=== PATIENT | male | born 2000 | race Caucasian/White ===

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

== ENCOUNTER 2024-09-01 16:36 | Inpatient (IN) ==
[2024-09-01 20:10] LABS: Basophils # (auto) 0.04 K/uL (0.00-0.20); Basophils % (auto) 0.5 %; Eosinophils # (auto) 0.06 K/uL (0.00-0.50); Eosinophils % (auto) 0.8 %; Hematocrit (blood only) 42.2 % (42.0-52.0); Hemoglobin 13.8 g/dl (14.0-18.0); Immature Granulocytes # (auto) 0.02 K/uL (0.01-0.20); Immature Granulocytes % (auto) 0.3 %; Lymphocytes # (auto) 2.17 K/uL (1.20-3.40); Lymphocytes % (auto) 27.4 %; Mean Corpuscular Hemoglobin 25.4 pg (25.0-34.0); Mean Corpuscular Hgb Conc 32.7 g/dL (32.0-36.0); Mean Corpuscular Volume 77.7 fL (80.0-100.0); Mean Platelet Volume 9.1 fL (9.4-12.4); Monocytes # (auto) 0.86 K/uL (0.11-0.59); Monocytes % (auto) 10.8 %; Neutrophils # (auto) 4.78 K/uL (1.40-6.50); Neutrophils % (auto) 60.2 %; Platelet Count 352 K/uL (130-400); RDW Coefficient of Variation 12.5 % (11.5-14.5); RDW Standard Deviation 35.2 fL (36.4-46.3); Red Blood Count 5.43 M/uL (4.70-6.10); White Blood Count 7.93 K/ul (4.8-10.8)
[2024-09-01 20:21] LABS: Albumin Globulin Ratio 1.4 (0.9-2); Albumin Level 4.4 gm/dl (3.4-5.0); BUN Creatinine Ratio 11.9 (10-20); Bilirubin,Total 0.4 mg/dl (0.2-1.0); Calcium 9.5 mg/dl (8.6-10.3); Creatinine Clr Calc Pharmacy 197.5 ml/min; Globulin 3.2 gm/dl (2.5-4.0); Potassium 3.7 mmol/L (3.5-5.1); Total Protein 7.6 gm/dl (6.0-8.3)
[2024-09-01 20:25] LABS: Appearance Urine Clear (Clear); Bacteria Urine Automated None Seen (None Seen); Bilirubin Urine Negative (Negative); Blood Urine Negative (Negative); Cast Urine Automated 0-2 /lpf (0-2); Color Urine Yellow; Epithelial Cell Urine Auto 0-2 /hpf (0-2); Glucose Urine UA Trace (Negative); Ketones Urine Trace (Negative); Leukocyte Esterase Urine Negative (Negative); Mucus Urine Present (None Prsent); Nitrite Urine Negative (Negative); Protein Urine 1+ (Negative); Specific Gravity Urine 1.025 (1.000-1.030); Urobilinogen Urine Negative (Negative); WBC Urine Automated 0-5 /hpf (0-5); pH Urine 5.5 (4.5-7.5)
[2024-09-01 20:35] LABS: Thyroid Stimulating Hormone 1.679 uIu/ml (0.300-4.500)
[2024-09-01 20:39] LABS: Acetaminophen 36 ug/ml (10-30); Partial Thromboplastin Time 26 Seconds (21-31); Prothrombin Time 11.3 Seconds (9.0-12.0); Salicylate < 3.0 mg/dl (3.0-30)
[2024-09-01 20:58] LABS: Amphetamines+Metham, Urine Neg (Neg); Barbiturates, Urine Neg (Neg); Benzodiazepine, Urine Neg (Neg); Cocaine, Urine Neg (Neg); Fentanyl, Urine Neg (Neg); MDMA (Ecstacy), Urine Neg (Neg); Marijuana, Urine Pos (Neg); Methadone, Urine Neg (Neg); Opiate, Urine Pos (Neg); Phencyclidine, Urine Neg (Neg)
--- NOTE | 2024-09-01 22:04 | Emergency Department Note ---
History of Present Illness General Chief complaint: Overdose (Intentional) Stated complaint: OVERDOSE Time Seen by Provider: 09/01/24 16:58 History of Present Illness Provider complaint: Overdose mental health evaluation 24-year-old male with history of anxiety and depression presents emergency department for a suicide attempt via overdose. Patient reports that at approximately 1530 he took hydrocodone 5/325 6 to 10 tablets as well as approximately 4000 mg of Tylenol PM and attempt to kill himself. Home Medications Medication Instructions Recorded Confirmed Type blood sugar diagnostic (Blood #50 ea 03/02/22 08/01/24 Rx Glucose Test strips) blood-glucose meter (Blood Glucose #1 ea 03/02/22 08/01/24 Rx Monitoring kit) lancets 21 gauge (Comfort EZ #100 ea 03/02/22 08/01/24 Rx Lancets) rizatriptan 10 mg tablet See Rx Instructions PO .COMPLEX 04/06/23 09/01/24 History PRN migraine headache albuterol sulfate 90 mcg/actuation 1 inh inhalation QID PRN shortness 09/29/23 09/01/24 Rx aerosol inhaler of breath or wheezing #6.7 grams lisinopril 40 mg tablet 40 mg PO QAM #90 tabs 09/30/23 09/01/24 Rx metformin 1,000 mg tablet 1,000 mg PO BID #180 tabs 09/30/23 09/01/24 Rx pantoprazole 40 mg tablet,delayed 40 mg PO BID #180 tabs 10/12/23 09/01/24 Rx release metoclopramide HCl 10 mg tablet 10 mg PO Q6H PRN nausea and 12/30/23 09/01/24 Rx (Reglan) vomiting #14 tabs digital therapeutic,TL device #1 ea 05/11/24 08/01/24 Rx duloxetine 30 mg capsule,delayed 30 mg PO BID 05/11/24 09/01/24 History release (Cymbalta) emtricitabine 200 mg-tenofovir 1 tab PO DAILY HIV prevention 05/11/24 09/01/24 History alafenamide fumarate 25 mg tablet (Descovy) hydrochlorothiazide 25 mg tablet 25 mg PO QAM 05/11/24 09/01/24 History hydrocodone 5 mg-acetaminophen 325 1 tab PO Q4H PRN pain 05/11/24 09/01/24 History mg tablet olanzapine 5 mg tablet 5 mg PO QPM PRN Migraine Headache 05/11/24 09/01/24 History galcanezumab-gnlm 120 mg/mL 120 mg subcut MONTHLY #3 mL 05/16/24 09/01/24 Rx subcutaneous pen injector (Emgality Pen) divalproex 250 mg tablet,delayed 250 mg PO QAM 05/26/24 09/01/24 History release rimegepant 75 mg disintegrating 75 mg PO DIRECTED PRN migraine 07/08/24 09/01/24 Rx tablet (Nurtec ODT) headache 90 days #24 tabs Medical Marijuana 1 dose PO UD PRN Anxiety 07/14/24 09/01/24 History dulaglutide 0.75 mg/0.5 mL 4.5 mg subcut WK 08/01/24 09/01/24 History subcutaneous pen injector (Trulicity) sucralfate 1 gram tablet 1 g PO Q6H 90 days #360 tabs 08/01/24 09/01/24 Rx dicyclomine 20 mg tablet 20 mg PO QID PRN abdominal pain 08/02/24 09/01/24 Rx #20 tabs albuterol sulfate 90 mcg/actuation 1 inh inhalation TID 09/01/24 09/01/24 History aerosol inhaler divalproex 250 mg tablet,extended 250 mg PO DAILY 09/01/24 09/01/24 History release 24 hr (Depakote ER) promethazine 25 mg rectal 25 mg SD USEASDIRECTD PRN Nausea 09/01/24 09/01/24 History suppository And Vomiting promethazine 25 mg rectal mg SD PRN Nausea 09/01/24 History suppository rosuvastatin 20 mg tablet (Crestor) 20 mg PO DAILY 09/01/24 09/01/24 History trazodone 100 mg tablet 100 mg PO DIRECTED 09/01/24 09/01/24 History Allergies Allergy/AdvReac Type Severity Reaction Status Date / Time morphine Allergy Severe given IV Verified 08/01/24 08:32 pt gets hives,if given orally throat swells shut oxycodone Allergy Severe THROAT Verified 08/01/24 08:32 SWELLS Sulfa (Sulfonamide Allergy Severe Swelling Verified 08/01/24 08:32 Antibiotics) of Lip/Tongue/Throat Penicillins Allergy Intermediate red rash Verified 08/01/24 08:32 venom-honey bee Allergy Intermediate swelling Verified 08/01/24 08:32 latex Allergy Mild HANDS Verified 08/01/24 08:32 ITCH/REDNESS sumatriptan AdvReac Severe Dizziness Verified 08/01/24 08:32 lactose AdvReac Intermediate Gastrointestinal Verified 08/01/24 08:32 Upset vinyl Allergy Intermediate cuticles Uncoded 08/01/24 08:32 get red,infected and fill with puss Past Med/Surg History Problem List (Updated 09/01/24 @ 22:24 by Frederick Chairez MD) Depression with suicidal ideation (Acute) GERD with esophagitis DDD (degenerative disc disease), lumbar Diabetes mellitus type 2 in obese Chronic lumbar pain Migraine with aura (Acute) Obesity Anxiety and depression Dislocation of left patella Esophagitis Acid reflux Hypertension Insomnia Asthma LAST USED INHALER>OVER MONTH AGO Medical History Anxiety and depression GERD without esophagitis Diabetes Neuropathy feet Asthma well controlled, rare use of rescue inhaler Sleep apnea CPAP nightly DDD (degenerative disc disease), lumbar chronic lumbar pain Lactose intolerance Post traumatic stress disorder Bipolar disorder Migraine Hypertension History of COVID-10 MARCH 2020 (LOSS OF TASTE/SMELL/FEBRILE/NAUSEA AND VOMITTING) ADHD IBS (irritable bowel syndrome) Surgical History History of esophagogastroduodenoscopy (EGD) Family history of reaction to anesthesia GRANDMOTHER-NAUSEA [place] teeth removed Family History Grandfather (Maternal) Diabetes Grandmother (Maternal) Diabetes Hypertension Liver disease Grandfather (Paternal) Diabetes Mother Migraine Other Cancer Social History Smoking Status: Former smoker Tobacco Type: E-cigarettes / Vaping Second Hand Exposure: No; Do You Dip or Chew Tobacco: No; Hx Alcohol Use: No Hx Substance Use: Yes (medical marijuana card- advised) Last Used Substance Other:: 8 mos ago Preferred Language: Maori Communication Ability: Effective Visual Impairment: Limited Hearing Ability: Normal Development Mgr Required: No Beliefs That Will Affect Care: None marital status: Single Current Living Situation: Family current occupational status: employed 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 [place] How many Children do You have: 0 Feels Safe at Home: Yes Childhood Exposure to Second-Hand Smoke: No Diet: lactose free and regular during the past year weight has: increased > 10 lbs Dental Care, Regularly: No Physical Activity Frequency: 3-4 Times per Week Seatbelt Use: always Sunscreen Use: Yes Gender Identity: Nonbinary Assistive Devices: CPAP and Glasses Physical Exam Vital Signs Vital Signs - 24 hr 09/01/24 16:47 09/01/24 17:30 09/01/24 17:33 Temperature 36.8 C Temperature Source Oral Pulse Rate 99 H 91 H Pulse Rate [Apical] Pulse Rate from SpO2 Sensor 91 H Pulse Rhythm Regular Respiratory Rate 20 19 Respiratory Effort / Characteristics Non-Labored Spontaneous Respiratory Depth Normal Respiratory Pattern Regular Blood Pressure 182/117 H 157/96 H Blood Pressure [Right Arm] Blood Pressure Mean 138 118 Blood Pressure Mean [Right Arm] Blood Pressure Position [Right Arm] Pulse Oximetry 97 96 Oxygen Delivery Method Room Air Sepsis Recent Fever Within 48 Hours No Sepsis New/Unexplained Change in Mental Status No Sepsis Action Taken by Nursing No Action Required 09/01/24 17:34 09/01/24 17:54 09/01/24 18:00 Temperature Temperature Source Pulse Rate 91 H 82 Pulse Rate [Apical] Pulse Rate from SpO2 Sensor 84 Pulse Rhythm Respiratory Rate 17 Respiratory Effort / Characteristics Respiratory Depth Respiratory Pattern Blood Pressure 157/87 H Blood Pressure [Right Arm] Blood Pressure Mean 111 Blood Pressure Mean [Right Arm] Blood Pressure Position [Right Arm] Pulse Oximetry 96 Oxygen Delivery Method Sepsis Recent Fever Within 48 Hours Sepsis New/Unexplained Change in Mental Status Sepsis Action Taken by Nursing 09/01/24 18:00 09/01/24 18:21 09/01/24 18:30 Temperature Temperature Source Pulse Rate Pulse Rate [Apical] Pulse Rate from SpO2 Sensor 90 Pulse Rhythm Respiratory Rate 18 Respiratory Effort / Characteristics Respiratory Depth Respiratory Pattern Blood Pressure 157/87 H 147/83 H Blood Pressure [Right Arm] Blood Pressure Mean 111 99 Blood Pressure Mean [Right Arm] Blood Pressure Position [Right Arm] Pulse Oximetry 97 Oxygen Delivery Method Sepsis Recent Fever Within 48 Hours Sepsis New/Unexplained Change in Mental Status Sepsis Action Taken by Nursing 09/01/24 18:48 09/01/24 19:00 09/01/24 19:00 Temperature Temperature Source Pulse Rate 81 Pulse Rate [Apical] Pulse Rate from SpO2 Sensor 83 Pulse Rhythm Respiratory Rate 18 Respiratory Effort / Characteristics Respiratory Depth Respiratory Pattern Blood Pressure 147/90 H 147/90 H Blood Pressure [Right Arm] Blood Pressure Mean 113 113 Blood Pressure Mean [Right Arm] Blood Pressure Position [Right Arm] Pulse Oximetry 97 Oxygen Delivery Method Sepsis Recent Fever Within 48 Hours Sepsis New/Unexplained Change in Mental Status Sepsis Action Taken by Nursing 09/01/24 19:00 09/01/24 19:00 09/01/24 19:30 Temperature Temperature Source Pulse Rate 86 87 Pulse Rate [Apical] Pulse Rate from SpO2 Sensor 86 88 Pulse Rhythm Respiratory Rate 18 19 Respiratory Effort / Characteristics Respiratory Depth Respiratory Pattern Blood Pressure 147/90 H Blood Pressure [Right Arm] Blood Pressure Mean 113 Blood Pressure Mean [Right Arm] Blood Pressure Position [Right Arm] Pulse Oximetry 98 97 Oxygen Delivery Method Sepsis Recent Fever Within 48 Hours Sepsis New/Unexplained Change in Mental Status Sepsis Action Taken by Nursing 09/01/24 19:30 09/01/24 19:30 09/01/24 19:30 Temperature Temperature Source Pulse Rate Pulse Rate [Apical] Pulse Rate from SpO2 Sensor Pulse Rhythm Respiratory Rate Respiratory Effort / Characteristics Respiratory Depth Respiratory Pattern Blood Pressure 154/90 H 154/90 H 154/90 H Blood Pressure [Right Arm] Blood Pressure Mean 112 112 112 Blood Pressure Mean [Right Arm] Blood Pressure Position [Right Arm] Pulse Oximetry Oxygen Delivery Method Sepsis Recent Fever Within 48 Hours Sepsis New/Unexplained Change in Mental Status Sepsis Action Taken by Nursing 09/01/24 21:19 Temperature Temperature Source Pulse Rate Pulse Rate [Apical] 80 Pulse Rate from SpO2 Sensor Pulse Rhythm Respiratory Rate 18 Respiratory Effort / Characteristics Non-Labored Spontaneous Respiratory Depth Normal Respiratory Pattern Regular Blood Pressure Blood Pressure [Right Arm] 169/99 H Blood Pressure Mean Blood Pressure Mean [Right Arm] 122 Blood Pressure Position [Right Arm] Lying Pulse Oximetry 97 Oxygen Delivery Method Room Air Sepsis Recent Fever Within 48 Hours Sepsis New/Unexplained Change in Mental Status Sepsis Action Taken by Nursing Physical Exam GENERAL: oriented to person, place, and time. appears well-developed and well- nourished. HENT: Exam performed. - Head: Normocephalic and atraumatic. EYES: Conjunctivae and EOM are normal. Right eye exhibits no discharge. Left eye exhibits no discharge. No scleral icterus. NECK: Normal range of motion. Neck supple. No JVD present. CV: Normal rate, regular rhythm, normal heart sounds and intact distal pulses. There is no peripheral edema. Palpable radial pulses bue. PULM/CHEST: Effort normal and breath sounds normal. No respiratory distress. No stridor. no wheezes. no rales. ABD: The abdomen is soft. There is no tenderness. NEURO: Motor and sensation grossly intact. SKIN: Skin is warm and dry. He is not diaphoretic. PSYCH: Suicidal ideation. Course Course 1657: The patient was evaluated in room A7. A complete history and physical exam was performed Cardiac monitoring: An order was placed for continuous cardiac monitoring. The monitor shows a rate of 90 with sinus rhythm interpreted by me 1752: Spoke with Felicitas from poison control and we both agreed to wait until labs until the 4-hour jonathan postingestion at 1930. 2051: Vital signs stable. Labs and imaging are unremarkable. Tylenol level 36, less than 150 at the 4-hour postingestion time. Discussed with Silviano from poison control who stated the patient can be cleared from toxicological standpoint. Will attempt to place the patient into inpatient mental health treatment. Patient placed in observation at this time. 2222: Case signed out to Dr. Reinoso awaiting psychiatric placement. Medical Decision Making Laboratory Data Attestation: I reviewed the patient's lab results. 09/01/24 19:41 09/01/24 19:41 Lab Results 09/01/24 Range/Units 19:41 WBC 7.93 (4.8-10.8) K/ul RBC 5.43 (4.70-6.10) M/uL Hgb 13.8 L (14.0-18.0) g/dl Hct 42.2 (42.0-52.0) % MCV 77.7 L (80.0-100.0) fL MCH 25.4 (25.0-34.0) pg MCHC 32.7 (32.0-36.0) g/dL RDW Std Deviation 35.2 L (36.4-46.3) fL RDW Coeff of Milagros 12.5 (11.5-14.5) % Plt Count 352 (130-400) K/uL MPV 9.1 L (9.4-12.4) fL Immature Gran % (Auto) 0.3 % Neut % (Auto) 60.2 % Lymph % (Auto) 27.4 % [place] % (Auto) 10.8 % Eos % (Auto) 0.8 % Baso % (Auto) 0.5 % Neut # (Auto) 4.78 (1.40-6.50) K/uL Lymph # (Auto) 2.17 (1.20-3.40) K/uL [place] # (Auto) 0.86 H (0.11-0.59) K/uL Eos # (Auto) 0.06 (0.00-0.50) K/uL Baso # (Auto) 0.04 (0.00-0.20) K/uL Immature Gran # (Auto) 0.02 (0.01-0.20) K/uL PT 11.3 (9.0-12.0) Seconds INR 1.0 (0.9-1.1) APTT 26 (21-31) Seconds PTT Ratio 1.0 Sodium 139 (136-145) mmol/L Potassium 3.7 (3.5-5.1) mmol/L Chloride 105 (98-107) mmol/L Carbon Dioxide 25 (21-32) mmol/L Anion Gap 9 (3-11) BUN 10 (6-23) mg/dl Creatinine 0.84 (0.6-1.4) mg/dl Est Cr Clr Drug Dosing 197.5 ml/min eGFR 125.66 BUN/Creatinine Ratio 11.9 (10-20) Glucose 107 H (70-99(Fasting)) mg/dl Calcium 9.5 (8.6-10.3) mg/dl Total Bilirubin 0.4 (0.2-1.0) mg/dl AST 18 (13-39) U/L ALT 28 (7-52) U/L Alkaline Phosphatase 43 (34-104) U/L Total Protein 7.6 (6.0-8.3) gm/dl Albumin 4.4 (3.4-5.0) gm/dl Globulin 3.2 (2.5-4.0) gm/dl Albumin/Globulin Ratio 1.4 (0.9-2) TSH 1.679 (0.300-4.500) uIu/ml Urine Color Yellow Urine Appearance Clear (Clear) Urine pH 5.5 (4.5-7.5) Ur Specific [place] 1.025 (1.000-1.030) Urine Protein 1+ H (Negative) Urine Glucose (UA) Trace H (Negative) Urine Ketones Trace H (Negative) Urine Blood Negative (Negative) Urine Nitrite Negative (Negative) Urine Bilirubin Negative (Negative) Urine Urobilinogen Negative (Negative) Ur Leukocyte Esterase Negative (Negative) Urine WBC (Auto) 0-5 (0-5) /hpf Urine RBC (Auto) 6-10 H (0-2) /hpf U Hyaline Cast (Auto) 0-2 (0-2) /lpf U Epithel Cells (Auto) 0-2 (0-2) /hpf Urine Bacteria (Auto) None Seen (None Seen) Urine Mucus Present A (None Prsent) Salicylates < 3.0 L (3.0-30) mg/dl Urine Opiates Screen Pos H (Neg) Ur Methadone, Qual Neg (Neg) Urine Fentanyl Screen Neg (Neg) Acetaminophen 36 H (10-30) ug/ml Urine Barbiturates Neg (Neg) Ur Phencyclidine (PCP) Neg (Neg) U Amphetamin/Meth Scrn Neg (Neg) MDMA (Ecstasy) Screen Neg (Neg) U Benzodiazepines Scrn Neg (Neg) Ur Cocaine Metabolite Neg (Neg) U Marijuana (THC) Screen Pos H (Neg) Ethyl Alcohol mg/dL < 10.0 (<10.0) mg/dl SARS-CoV-2, RNA, NAAT NEGATIVE (NEGATIVE) ECG Data Attestation: I personally reviewed and interpreted this ECG as follows: Additional Comments: EKG #1 at 164: Sinus tachycardia with a rate of 108. SD QRS and QTc intervals within normal limits. No ST elevation or ST depression. EKG #2 at 2049: Sinus rhythm with a rate of 86. SD QRS and QT intervals within normal limits. No ST elevation or ST depression. MDM Narrative 1658: The patient was evaluated in room A7. A complete history and physical exam was performed Cardiac monitoring: An order was placed for continuous cardiac monitoring. The monitor shows a rate of 90 with sinus rhythm interpreted by me 1753: Spoke with Felicitas from poison control and we both agreed to wait until labs until the 4-hour jonathan postingestion at 1930. 2051: Vital signs stable. Labs and imaging are unremarkable. Tylenol level 36, less than 150 at the 4-hour postingestion time. Discussed with Silviano from poison control who stated the patient can be cleared from toxicological standpoint. Will attempt to place the patient into inpatient mental health treatment. Patient placed in observation at this time. 2223: Case signed out to Dr. Reinoso awaiting psychiatric placement. Observation note Indication: Psych eval/placement Patient, with anxiety, depression was first seen at 1658 hrs and the observation time began at 2052 hrs and was necessary in order to have psych evaluation completed and have the patient placed for inpatient psychiatric treatment. Impression & Plan Depression with suicidal ideation Discharge Plan Visit Data Chief Complaint: Overdose (Intentional) Stated Complaint: OVERDOSE ED Provider: Frederick Chairez Discharge Problem: Depression with suicidal ideation Patient Disposition: Still a Patient Forms Stand Alone Forms: [facility], Suicide Prevention Resources Prescriptions Prescriptions: No Action albuterol sulfate 90 mcg/actuation HFA aerosol inhaler 1 inh inhalation QID PRN (Reason: shortness of breath or wheezing) Qty: 6.7 0RF lisinopril 40 mg tablet 40 mg PO QAM Qty: 90 3RF metformin 1,000 mg tablet 1,000 mg PO BID Qty: 180 3RF pantoprazole 40 mg tablet,delayed release (DR/EC) 40 mg PO BID Qty: 180 3RF Rx Instructions: Take 1 tablet by mouth twice daily metoclopramide HCl [Reglan] 10 mg tablet 10 mg PO Q6H PRN (Reason: nausea and vomiting) Qty: 14 2RF Emgality Pen 120 mg/mL pen injector 120 mg subcut MONTHLY Qty: 3 3RF Rx Instructions: 15 th of every month Nurtec ODT 75 mg tablet,disintegrating 75 mg PO DIRECTED PRN (Reason: migraine headache) 90 Days Qty: 24 3RF Rx Instructions: Take 1 tablet daily PRN for migraine. Max 1 tab/24 hrs (DME) blood-glucose meter [Blood Glucose Monitoring] Kit See Rx Instructions .Route Qty: 1 0RF Rx Instructions: As directed (DME) Blood Glucose Test Strip See Rx Instructions .Route Qty: 50 7RF Rx Instructions: As directed test BID (DME) lancets [Comfort EZ Lancets] 21 gauge misc See Rx Instructions .Route Qty: 100 3RF Rx Instructions: As directed rizatriptan 10 mg tablet See Rx Instructions PO .COMPLEX PRN (Reason: migraine headache) Rx Instructions: take 1 tab at onset of headache; if no relief may repeat 1 tab after at least 2 hrs; max = 3 tabs/24 hr orally PRN; duloxetine [Cymbalta] 30 mg capsule,delayed release(DR/EC) 30 mg PO BID hydrocodone-acetaminophen 5-325 mg tablet 1 tab PO Q4H PRN (Reason: pain) olanzapine 5 mg tablet 5 mg PO QPM PRN (Reason: Migraine Headache) hydrochlorothiazide 25 mg tablet 25 mg PO QAM [place] 200-25 mg tablet 1 tab PO DAILY (DME) digital therapeutic,TL device Misc See Rx Instructions miscellaneous .MEDSUPPLY Qty: 1 0RF Rx Instructions: As directed sucralfate 1 gram tablet 1 g PO Q6H 90 Days Qty: 360 3RF Dose Instruction: TAKE 1 TABLET BY MOUTH 4 TIMES DAILY FOR 14 DAYS TAKE BEFORE MEALS AND BEDTIME CRUSH AND MIX WITH 15ML WATER Trulicity 0.75 mg/0.5 mL pen injector 4.5 mg subcut WK Patient Comments: saturdays Rx Instructions: wednesday divalproex 250 mg tablet,delayed release (DR/EC) 250 mg PO QAM promethazine 25 mg suppository 25 mg SD USEASDIRECTD PRN (Reason: Nausea And Vomiting) trazodone 100 mg tablet 100 mg PO DIRECTED albuterol sulfate 90 mcg/actuation Hfa Aerosol Inhaler 1 inh INHALATION TID divalproex [Depakote ER] 250 mg Tablet Extended Release 24 Hr 250 mg PO DAILY rosuvastatin [Crestor] 20 mg Tablet 20 mg PO DAILY promethazine 25 mg suppository SD PRN (Reason: Nausea) Medical Marijuana 1 dose PO UD PRN (Reason: Anxiety) Patient Comments: last used 8 months ago dicyclomine 20 mg tablet 20 mg PO QID PRN (Reason: abdominal pain) Qty: 20 0RF Referrals Referrals: Jonathan Sue MD [Primary Care Provider] -
--- NOTE | 2024-09-01 23:56 | Emergency Department Note ---
ED Visit Note Patient signed out to me at change of shift from Dr. Chairez. Patient medically cleared at time of signout, please see his documentation for additional details. Patient here with suicidal ideation. Patient accepted to [facility] for additional inpatient mental health treatment. .
[2024-09-02] MEDS ORDERED: MAGNESIUM HYDROXIDE SUSP 30 ML UDC PO PRN (00:59)
[2024-09-02] MEDS ORDERED: BISMUTH SUBSALICYLATE 262 MG CHEW PO PRN (00:59)
[2024-09-02] MEDS ORDERED: hydrOXYzine HCl 25 MG TAB PO PRN ×2 (00:59)
[2024-09-02] MEDS ORDERED: ALUMINUM/MAGNESIUM SUSP 30 ML UDC PO PRN (00:59)
[2024-09-02] MEDS ORDERED: SODIUM CHLORIDE 0.65% NA SOLN 45 ML (OCEAN) PRN (00:59)
[2024-09-02] MEDS: hydroCHLOROthiazide 25 MG TAB PO STA (01:21)
[2024-09-02] MEDS ORDERED: ALBUTEROL HFA 8 GM INHALER INH PRN (01:38)
[2024-09-02] MEDS ORDERED: ONDANSETRON 4 MG OD TAB PO PRN (02:01)
--- OUTSIDE RECORDS SUMMARY | 2024-09-02 02:27 | External Medical Summary | Summary of Care ---
Author Name Unknown Organization [facility] Address [address] [place] [address] Phone [phone] Care Team Providers Care Electrical Tester Battery Name Role Phone Octavio Sue MD Primary Care Provider Reason for Visit * Reason Onset Date Comments Appointment 08/09/2024 acute Encounter Details Date Type Department Care Team (Late st Contact Info) Description 08/09/2024 Telephone [facility] [address] [place] [address] Octavio Sue MD [address] [place], [place] [id number] Appointment (acute) Allergies Active Allergy Reactions Criticality Noted Date Comments Bee Venom 09/01/2017 Food (See Comments) 09/01/2017 Raisins Latex 12/30/2023 Red hands,itchy hives on hands. Oxycodone Anaphylaxis High 10/27/2023 Penicillins Hives,Itching 10/27/2023 Sulfa Antibiotics Hives High 01/04/2024 Sumatriptan Other (Please comment) 10/27/2023 Dizziness and light headedness documented as of this encounter (statuses as of 08/09/2024) Medications Metoclopramide HCl 10 MG Oral Tablet (Reglan) Take 1 Tablet by mouth every 6 hours as needed for Nausea or Other (vomitting). 10/07/19 24 Active Pantoprazole Sodium 40 MG Oral Tablet Delayed Release (Protonix) Take 1 Tablet by mouth in the morning and 1 Tablet in the evening. 09/30/19 24 Active Rizatriptan Benzoate 10 MG Oral Tablet (Maxalt) Take 1 Tablet by mouth as needed for Migraine. Active metFORMIN HCl 1000 MG Oral Tablet (Glucophage) Take 1 Tablet by mouth 2 times a day with morning and evening meals. 180 Tablet 3 12/20/19 24 Active Triamcinolone Acetonide 0.1 % External Cream (Aristocort) Apply 4-5 grams to affected area 2 times a day up to 2 weeks for itching 80 g 1 03/27/20 24 Active Lisinopril 40 MG Oral TabletIndications: HTN, goal below 130/80 Take 1 Tablet by mouth in the morning. 03/31/20 24 Active hydroCHLOROthiazid e 25 MG Oral Tablet (Hydrodiuril)Indic ations:HTN, goal below 130/80 Take 1 Tablet by mouth in the morning. 90 Tablet 3 03/31/20 24 Active Descovy 200-25 MG Oral Tablet (Emtricitabine-Ten ofovir AF 200-25 mg per tab)Indications:On pre-exposure prophylaxis for HIV Take 1 Tablet by mouth in the morning. 30 Tablet 3 04/19/2024 3:05 PM EDT 04/19/20 24 Active Divalproex Sodium 250 MG Oral Tablet Delayed Release (Depakote DR) Take 1 tablet by mouth daily 90 Tablet 2 05/11/2024 12:37 PM EDT 05/11/20 24 Active Emgality 120 MG/ML Subcutaneous Solution Auto-injector (Galcanezumab-gnlm ) Inject 120 mg under the skin once a month 1 mL 11 05/11/20 24 Active OLANZapine 5 MG Oral Tablet (zyPREXA) Take 1 Tablet by mouth at bedtime. 05/11/20 24 Active Albuterol Sulfate HFA 108 (90 Base) MCG/ACT Inhalation Aerosol Solution Inhale 1 Puff by mouth in the morning and 1 Puff at noon and 1 Puff in the evening and 1 Puff before bedtime. For shortness of breath and or whizzing. 18 g 5 05/31/2024 10:34 AM EDT 05/30/20 24 Active Dexcom G7 SensorIndications: Type 2 diabetes mellitus with hemoglobin A1c goal of less than 7.0% (HCC) Use as directed every 10 days. 9 Each 4 06/01/2024 11:37 AM EDT 05/31/20 24 Active GNP Easy Touch Glucose Meter DeviceIndications: Type 2 diabetes mellitus with hemoglobin A1c goal of less than 7.0% (HCC) Use to check blood sugars daily E 11.9 1 Each 4 05/31/20 24 Active GNP Easy Touch Glucose Test In Vitro Strip (Glucose Blood)Indications: Type 2 diabetes mellitus with hemoglobin A1c goal of less than 7.0% (HCC) Use to check blood sugars daily E 11.9 100 Strip 4 05/31/20 24 Active GNP Sterile Lancets 28GIndications:Typ e 2 diabetes mellitus with hemoglobin A1c goal of less than 7.0% (HCC) Use to check blood sugars daily. E 11.0 100 Each 4 05/31/20 24 Active DULoxetine HCl 30 MG Oral Capsule Delayed Release Particles (Cymbalta)Indicati ons:Lumbar radicular pain,DDD (degenerative disc disease), lumbar,Neuropathic pain Take 1 Capsule by mouth in the morning and 1 Capsule before bedtime. 60 Capsule 3 06/21/2024 2:00 PM EDT 06/19/20 24 Active Nurtec 75 MG Oral Tablet Disintegrating (Rimegepant Sulfate) Take one tablet by mouth daily as needed for migraine. Max one tablet a day 24 Tablet 3 07/13/2024 1:10 PM EST 07/08/20 24 Active traZODone HCl 100 MG Oral Tablet (Desyrel) Take 1 Tablet by mouth at bedtime as needed for Sleep. 30 Tablet 07/12/20 24 Active Trulicity 4.5 MG/0.5ML Subcutaneous Solution Auto-injector (Dulaglutide)Indic ations:Type 2 diabetes mellitus with hemoglobin A1c goal of less than 7.0% ([facility]) Inject 4.5 mg under the skin once a week. Dose increase 6 mL 07/21/2024 1:32 PM EST 07/18/20 24 Active Rosuvastatin Calcium 20 MG Oral Tablet (Crestor)Indicatio ns:Type 2 diabetes mellitus with hemoglobin A1c goal of less than 7.0% (HCC) Take 1 Tablet by mouth every day 90 Tablet 4 07/21/2024 9:58 AM EST 07/19/20 Active Additional Information Patient not taking.Reason: on hold per MTM as of 07/31/24, Reported on 08/04/2024 Albuterol Sulfate HFA 108 (90 Base) MCG/ACT Inhalation Aerosol Solution Inhale by mouth. 20.1 g 07/24/20 Active Sucralfate 1 GM Oral Tablet (Carafate) take 1 tablet by mouth every 6 hours 360 Tablet 3 08/01/20 Active Dicyclomine HCl 20 MG Oral Tablet (Bentyl) 08/02/20 Active documented as of this encounter (statuses as of 08/09/2024) Active Problems Problem Noted Date Diagnosed Date Mild intermittent asthma without complication Type 2 diabetes mellitus wit h hemoglobin A1c goal of less than 7.0% 05/08/2024 HTN, goal below 130/80 05/08/2024 Class 3 severe obesity due t o excess calories with serious comorbidity and body mass index (BMI) of 40.0 to 44.9 in adult 11/17/2023 Attention deficit hyperactivity disorder (ADHD) 05/10/2018 Migraines 10/01/2014 Family history of diabetes mellitus 2013 documented as of this encounter (statuses as of 08/09/2024) Resolved Problems Problem Noted Date Diagnosed Date Resolved Date Wheezing 09/06/2013 04/10/2019 Hypercholesterolemia 03/21/2013 019 Obesity, pediatric 2013 4 documented as of this encounter (statuses as of 08/09/2024) Immunizations Name Administration Dates Next Due COVID-19 mRNA, LNP-s, No Pre serve, 2-Dose Series (Pfizer) 11/21/2020,10/31/2020 DTaP Dipth/Tet/Acell Pertussis (Infanrix), Peds 02/25/2006,06/22/2002,2001,07/25,2001 HIB PRP-T, 4 Dose, PF, IM (H iberix, ActHib) 07/31/2004,03/23/2002,2001,05/19 HPV Vaccine, 4-Valent 05/23/2014,02/28/2014 HPV Vaccine, 9-Valent 04/06/2018,05/23/2014,070 04/2014 Haemophilius B (HIB), unspecified 2003,03/23/2002,2001,05/19 Hepatitis A Vaccine 03/21/2013,05/05/2012 Hepatitis A, Ped/Adol., 18 y ear and below, 2-Dose 03/21/2013,05/05/2012 Hepatitis B, 0-19 yrs 03/23/2002,2001,04/24 IPV - Polio Virus Vaccine (Inact) 2005,06/22/2002,2001,05/19 MMR - Measles/Mumps/Rubella Vaccine 02/25/2006,0 03/23/2002 Meningococcal Conjugate Vacc ine (Menactra/Menveo) 04/06/2018,05/05/2012 Meningococcal MCV4P Conjugat e Vaccine (Menactra) 04/06/2018,05/05/2012 PPD 12/07/2023,,08/02/2017,07/21 Pneumococcal Conjugate Vacc, 13 Valent (Prevnar) 03/23/2002,2001,2001,05/19 Pneumococcal Conjugate Vacci ne, 20-valent ([id number]) 12/22/2023 Seasonal Influenza Vac., MDV , IM, 0.5 mL (Fluzone) 05/05/2012,05/25/2011 Seasonal Influenza Virus Vac cine, Unspecified Formulation 05/07/2023,06/27/2018,06/17/2016,05/05,05/25/2011,07/09/2008 Seasonal Influenza, PF, 6 M & above, IM , (FluLaval or Fluzone) 06/27/2018 Seasonal Influenza, Quadriva lent, No Preserve, IM 06/17/2016,06/12/2015 Seasonal Influenza, Recombin ant, RIV4, PF, (Flublock) 05/10/2020 Seasonal Influenza, Trivalen t, (IIV3), PF, (Fluzone) 06/26/2024 TDAP (age 10 and older)(Boostrix) 04/06/2018 TDAP, Age 7 and older, IM (Adacel) 05/05/2012 Varicella Vaccine (Chicken Pox) 07/31/2009,03/23 documented as of this encounter Social History Tobacco Use Types Packs/Day Years Used Date Smoking Tobacco: Never Passive Smoke Exposure: Current Smokeless Tobacco: Never Alcohol Use Standard Drinks/Week Comments No 0 (1 standard drink = 0.6 oz pur e alcohol) PHQ-2 Answer Date Recorded PHQ Adult Total Score 0 05/17/2024 Hunger Vital Sign Answer Date Recorded Within the past 12 months, y ou worried that your food would run out before you got the money to buy more. Patient declined Within the past 12 months, t he food you bought just didn't last and you didn't have money to get more. Patient declined 11/2023 Childcare Answer Date Recorded Do you feel overwhelmed with taking care of a child, family member or friend? No 10/25/2023 Does your family need help f inding childcare? (Household - for ages 0-17 years) Not on file 10/25/2023 Clothing Answer Date Recorded Have you been unable to get clothing when it was really needed? No 10/25/2023 Is your family able to get c lothes or diapers when needed? (Household - for ages 0-17 years) Not on file 10/25/2023 Personal Safety Answer Date Recorded Do you feel unsafe or have concerns for your saf ety? No 10/25/2023 Do you have concerns for you r family's safety? (Household - for ages 0-17 years) Not on file 10/25/2023 Utilities Answer Date Recorded Do you have trouble paying y our heating, water, or electric bill? No 10/25/2023 Is your family able to pay t he heat, water, or electric bill? (Household - for ages 0-17 years) Not on file 10/25/2023 Does your family have access to good internet? (Household - for ages 0-17 years) Not on file 10/25/2023 Employment Status Answer Date Recorded Are you unemployed or without regular income? No 10/25/2023 Does the household have a re gular source of income? (Household - for ages 0-17 years) Not on file 10/25/2023 Social Connections Answer Date Recorded How often do you feel lonely or isolated from th ose around you? Rarely 10/25/2023 Financial Resource Strain Answer Date R ecorded Do you have any trouble payi ng for your medications, or do you think you might in the future? No 10/25/2023 Does your family have troubl e paying for medicine? (Household - for ages 0-17 years) Not on file 10/25/2023 Transportation Needs Answer Date Record ed READ ONLY Do you have troubl e getting a ride to medical visits or work? Never True 10/25/2023 Does your family have a hard time getting a ride to doctors visits? (Household - for ages 0-17 years) Not on file 10/25/2023 Has lack of transportation k ept you from medical appointments, meetings, work, or from getting things needed for daily living? Check all that apply. (Adult - for ages 18 years and over) Not on file 10/25/2023 Do you (or your family) have trouble finding or paying for a ride (transportation)? (Household - for ages 0-17 years) Not on file 10/25/2023 Housing Stability Answer Date Recorded Do you currently live in a s helter or have no steady place to sleep at night? No 10/25/2023 READ ONLY Do you think you a re at risk of becoming homeless? No 10/25/2023 Does your family worry about paying for your home or becoming homeless? (Household - for ages 0-17 years) Not on file 0 10/25/2023 Are you homeless or worried that you might be in the future? (Adult - for ages 18 years and over) Not on file Are you (or your family) fawad eless or worried that you might be in the future? (Household - for ages 0-17 years) Not on file Food Insecurity Answer Date Recorded Do you need food for this week? No 10/25/2023 Are you able to get enough f ood for your family? (Household - for ages 0-17 years) Not on file 10/25/2023 Does your family need food t his week? (Household - for ages 0-17 years) Not on file 10/25/2023 Do you always have enough fo od for your family? (Household - for ages 0-17 years) Not on file 10/25/2023 Sex and Gender Information Value Date Recorded Sex Assigned at Male 10/25/2023 6:15 PM EST Legal Sex Male 6:54 AM EST Gender Identity Male 10/25/2023 6:15 PM EST Sexual Orientation Marcial 10/25/2023 6: 15 PM EST documented as of this encounter Miscellaneous Notes * Telephone Encounter - Roxy Erickson OSA - 08/09/2024 2:10 PM EST Done. 08/09/2024 * Telephone Encounter - Arben Garcia OSA - 08/09/2024 12:25 PM EST No Appointments Available Patient declined appointments?: Yes What Visit Type is needed? Acute If Acute Visit Type is needed, were surrounding clinics offered to patient (Yes/No)? Yes Was patient offered appointments with other available providers (Yes/No)? Yes See Call Details? (Yes or No): Yes documented in this encounter Plan of Treatment Upcoming Encounters Date Type Department Care Team (Late st Contact Info) Description 08/09/2024 3:40 PM EST Telemedicine [facility] [address] [facility] [place] [phone] DecemberJamal MD [address] [facility] [place] [phone] 08/21/2024 10:30 AM EST Office Visit Interventional Pain Center, [facility] [address] [address] Meg Muñoz PA-C [address] [place] [address] 09/01/2024 2:30 PM EST Telemedicine Psychiatry Akash Leonard [address] [phone] Lucien Mane, DO [address] [place] [phone] 09/11/2024 9:30 AM EST Therapy Psychology [facility] [address] [facility] [place] [phone] Elvie Chan, [facility] [address] [facility] [place] [address] 10/02/2024 8:00 AM EST Office [facility] [phone] Octavio Sue MD [address] [place] [address] 10/11/2024 9:00 AM EST Office Visit Infectious Disease [facility] [address] [place] [address] Clotilde Reid MD [address] [place], [place] [id number] 11/14/2024 3:00 PM EDT Office Visit Sleep Disorders Ctr [facility] [address] [facility] [place] [phone] Courtney Fischer, DO [address] [facility] [place] [address] 12/19/2024 9:00 AM EDT Office Visit Pharmacy, Doroteo Stroud [address] [facility] [place] [phone] [address] [address] Health Maintenance Due Date Last Done Comments COVID-19 Vaccine (2023-2 5 season) 2024 06/03/2022, 11/21/2020, 10/31/2020, Additional history exists Albumin/Creatinine Ratio 10/26/2024 10/27/2023 HbA1c 11/15/2024 05/18/2024, 03/0 01/2024, 01/02/2016, Additional history exists Diabetic Eye Exam 03/01/2025 03/01/2024 Depression Screening 05/17/2025 05/17/2024, 03/10/2024, 12/22/2023 Diabetic Foot Exam 05/29/2025 05/29/2024 GFR 07/12/2025 07/12/2024, 0802/2024, 04/11/2024, Additional history exists DTap/Tdap Vaccines (9 - Td o r Tdap) 01/24/2032 01/23/2022, 04/06/2018, 05/05/2012, Additional history exists Hepatitis B Vaccine Completed 03/23/2002, 2001, 2001 HPV (Gardasil) Vaccine Completed 8, 05/23/2014, 05/23/2014, Additional history exists MENINGOCOCCAL (MENACTRA/MENVEO) Completed 04/06/2018, 04/06/2018, 05/05/2012, Additional history exists Pneumococcal Vaccine: Pediat rics (0 to 5 Years) and At-Risk Patients (6 to 64 Years) Completed 12/22/2023, 01/23/2022, 03/23/2002, Additional history exists Influenza Vaccine (FLU shot) Completed 11/2023, 06/26/2024, 06/29/2023, Additional history exists documented as of this encounter Medical Devices Not on filedocumented as of this encounter Care Teams Electrical Tester Battery Relationship Specialty Start Date End Date Octavio Sue MD [address] [place] [address] PCP - General Family Medicine 10/26/23 documented as of this encounter
--- OUTSIDE RECORDS SUMMARY | 2024-09-02 02:27 | External Medical Summary | Summary of Care ---
Author Name Unknown Organization [facility] Address [address] [place] [address] Phone [phone] Care Team Providers Care Estate Administrator Name Role Phone Octavio Sue MD Primary Care Provider [phone] Reason for Visit * Reason Comments Back Pain * Precert (Within 30 days (routine)) - Authorized Specialty Diagnoses / Procedures Referred By Crissy her Referred To Contact Pain Medicine Diagnoses Myalgia, other site Procedures [place] INJECTION SINGLE/BEATER WORKER HELPER TRIGGER POINT 3 OR MORE MUSCLES Meg Muñoz PA-C [address] [place] [address] Phone: tel: fax: Interventional Pain Center, [facility] [address] [place] [address] Phone: tel: fax: Referral ID Status Reason Start Date Expiration Date V isits Requested Visits Authorized [id number] Authorized Precert 07/26/2024 09/24/[id number] Encounter Details Date Type Department Care Team (Late st Contact Info) Description 08/21/2024 10:30 AM EST Office Visit Interventional Pain Center, [facility] [address] [place] [address] Meg Muñoz PA-C [address] [place] [address] Myofascial pain syndrome of lumbar spine* Allergies Active Allergy Reactions Criticality Noted Date Comments Bee Venom 09/01/2017 Food (See Comments) 09/01/2017 Raisins Latex 12/30/2023 Red hands,itchy hives on hands. Oxycodone Anaphylaxis High 10/27/2023 Penicillins Hives,Itching 10/27/2023 Sulfa Antibiotics Hives High 01/04/2024 Sumatriptan Other (Please comment) 10/27/2023 Dizziness and light headedness documented as of this encounter (statuses as of 08/21/2024) Medications Metoclopramide HCl 10 MG Oral Tablet [...] Tablet 2 05/11/2024 12:37 PM EDT 05/11/20 Active Emgality 120 MG/ML Subcutaneous Solution Auto-injector (Galcanezumab-gnlm ) Inject 120 mg under the skin once a month 1 mL 11 05/11/20 Active OLANZapine 5 MG Oral Tablet (zyPREXA) Take 1 Tablet by mouth at bedtime. 05/11/20 Active Albuterol Sulfate HFA 108 (90 Base) MCG/ACT Inhalation Aerosol Solution Inhale 1 Puff by mouth in the morning and 1 Puff at noon and 1 Puff in the evening and 1 Puff before bedtime. For shortness of breath and or whizzing. 18 g 5 05/31/2024 10:34 AM EDT 05/30/20 Active Dexcom G7 SensorIndications: Type 2 diabetes mellitus with hemoglobin A1c goal of less than 7.0% ([facility]) Use as directed every 10 days. 9 Each 4 08/17/2024 8:16 AM EST 05/31/20 Active GNP Easy Touch Glucose Meter DeviceIndications: Type 2 diabetes mellitus with hemoglobin A1c goal of less than 7.0% ([facility]) Use to check blood sugars daily E 11.9 1 Each 4 05/31/20 Active GNP Easy Touch Glucose Test In Vitro Strip (Glucose Blood)Indications: Type 2 diabetes mellitus with hemoglobin A1c goal of less than 7.0% ([facility]) Use to check blood sugars daily E 11.9 100 Strip 4 05/31/20 Active GNP Sterile Lancets 28GIndications:Typ e 2 diabetes mellitus with hemoglobin A1c goal of less than 7.0% ([facility]) Use to check blood sugars daily. E 11.0 100 Each 4 05/31/20 24 Active DULoxetine HCl 30 MG Oral Capsule Delayed Release Particles (Cymbalta)Indicati ons:Lumbar radicular pain,DDD (degenerative disc disease), lumbar,Neuropathic pain Take 1 Capsule by mouth in the morning and 1 Capsule before bedtime. 60 Capsule 3 06/21/2024 2:00 PM EDT 06/19/20 Active Nurtec 75 MG Oral Tablet Disintegrating (Rimegepant Sulfate) Take one tablet by mouth daily as needed for migraine. Max one tablet a day 24 Tablet 3 07/13/2024 1:10 PM EST 07/08/20 Active traZODone HCl 100 MG Oral Tablet (Desyrel) Take 1 Tablet by mouth at bedtime as needed for Sleep. 30 Tablet 07/12/20 Active Trulicity 4.5 MG/0.5ML Subcutaneous Solution Auto-injector (Dulaglutide)Indic ations:Type 2 diabetes mellitus with hemoglobin A1c goal of less than 7.0% (HCC) Inject 4.5 mg under the skin once a week. Dose increase 6 mL 07/21/2024 1:32 PM EST 07/18/20 Active Rosuvastatin Calcium 20 MG Oral Tablet (Crestor)Indicatio ns:Type 2 diabetes mellitus with hemoglobin A1c goal of less than 7.0% (HCC) Take 1 Tablet by mouth every day 90 Tablet 4 07/21/2024 9:58 AM EST 07/19/20 Active Additional Information Patient not taking.Reason: on hold per MTM as of 07/31/24, Reported on 08/21/2024 Albuterol Sulfate HFA 108 (90 Base) MCG/ACT Inhalation Aerosol Solution Inhale by mouth. 20.1 g 07/24/20 Active Sucralfate 1 GM Oral Tablet (Carafate) take 1 tablet by mouth every 6 hours 360 Tablet 3 08/11/2024 11:52 AM EST 08/01/20 Active Dicyclomine HCl 20 MG Oral Tablet (Bentyl) 08/02/20 Active Promethazine HCl 25 MG Rectal Suppository (Phenergan)Indicat ions:Nausea and vomiting, unspecified vomiting type Administer 1 Suppository into the rectum every 6 hours as needed for Nausea. 12 Each 2 08/09/20 Active documented as of this encounter (statuses as of 08/21/2024) Active Problems Problem Noted Date Diagnosed Date [...] as of this encounter (statuses as of 08/21/2024) Resolved Problems Problem Noted Date Diagnosed Date Resolved Date Wheezing 09/06/2013 04/10/2019 Hypercholesterolemia 03/21/2013 019 Obesity, pediatric 2013 4 documented as of this encounter (statuses as of 08/21/2024) Immunizations Name Administration Dates Next Due COVID-19 mRNA, LNP-s, No Pre serve, 2-Dose Series (Pfizer) 11/21/2020,10/31/2020 DTaP Dipth/Tet/Acell Pertussis (Infanrix), Peds 02/25/2006,06/22/2002,2001,07/25,2001 HIB PRP-T, 4 Dose, PF, IM (H iberix, ActHib) 07/31/2004,03/23/2002,2001,05/19 HPV Vaccine, 4-Valent 05/23/2014,02/28/2014 HPV Vaccine, 9-Valent 04/06/2018,05/23/2014,0704/2014 Haemophilius B (HIB), unspecified 2003,03/23/2002,2001,05/19 Hepatitis A Vaccine 03/21/2013,05/05/2012 Hepatitis A, Ped/Adol., 18 y ear and below, 2-Dose 03/21/2013,05/05/2012 Hepatitis B, 0-19 yrs 03/23/2002,2001,04/24 IPV - Polio Virus Vaccine (Inact) 2005,06/22/2002,2001,05/19 MMR - Measles/Mumps/Rubella Vaccine 02/25/2006,0 03/23/2002 Meningococcal Conjugate Vacc ine (Menactra/Menveo) 04/06/2018,05/05/2012 Meningococcal MCV4P Conjugat e Vaccine (Menactra) 04/06/2018,05/05/2012 PPD 12/07/2023, 4,08/02/2017,07/21 Pneumococcal Conjugate Vacc, 13 Valent (Prevnar) 03/23/2002,2001,2001,05/19 Pneumococcal Conjugate Vacci ne, 20-valent ([id number]) 12/22/2023 Seasonal Influenza Vac., MDV , IM, [...] No 10/25/2023 Does the household have a [facility] source of income? (Household - for ages [...] PM EST documented as of this encounter Progress Notes * Meg Muñoz PA-C - 08/21/2024 10:53 AM EST Procedure:Trigger Point Injection(s)-Local Anesthetic CPT #27608 Indication(s): Myofascial Pain of R lumbar region Co-morbid conditions: Reviewed. No prior adverse reaction to anesthetic. Airway is normal. Neck has mildly decreased passive ROM. Discussed alternative plans, benefits and potential risks which include, but not limited to bleeding, infections, nerve damage or failure of the procedure. He agreed to proceed with this procedure. Informed consent was obtained. Time out was done, (Geri LOZANO present) which included identity of patient, type of procedure, site(s.) Three trigger points over RIGHT lower lumbar region involving extensor muscle groups with total of 3 mL 1% lidocaine using 27 gauge needle after alcohol prep. Following injection, needles were removed, site(s) cleaned and dried. Patient observed for ten minutes. Tolerated procedure well. Will avoid heat for 24 hours, can applyice. Complication(s): none Follow Up: 3 weeks via MyG. Requested work excuse for todays appointment. Note provided. Meg Muñoz PA-C 08/21/24 documented in this encounter Nursing Notes * Ghazal Nevarez LPN - 08/21/2024 10:25 AM EST Patient here for lumbar tpi f/u-reports increased pain the first week but then resolved Was in the ER once during that time period Pain is currently a 3/10 Would like to get them again today, does a lot of bending at work which is aggravating documented in this encounter Plan of Treatment Upcoming Encounters Date Type Department Care Team (Late st Contact Info) Description 09/01/2024 2:30 PM EST Telemedicine Psychiatry Akash Leonard [address] [place] [phone] Lucien Mane DO [address] [place] [phone] 09/11/2024 9:30 AM EST Therapy Psychology [facility] [address] [phone] Elvie Chan LCSW [address] [address] 10/02/2024 8:00 AM EST [facility] [address] [facility] [place] [phone] Octavio Sue MD [address] [place] [address] 10/11/2024 9:00 AM EST Office Visit [facility] [place] [address] [place] [address] Clotilde Reid MD [address] [place] [address] 11/14/2024 3:00 PM EDT [facility] [address] [facility] [place] [phone] Courtney Fischer DO [facility] [place] [address] 12/19/2024 9:00 AM EDT [facility] [address] [place] [phone] [facility] [address] [place] [address] Health Maintenance Due Date Last Done Comments COVID-19 Vaccine (2023-2 5 season) 2024 06/03/2022, 11/21/2020, 10/31/2020, Additional history exists Albumin/Creatinine Ratio 10/26/2024 10/27/2023 HbA1c 11/15/2024 05/18/2024, 03/0 01/2024, 01/02/2016, Additional history exists Diabetic Eye Exam 03/01/2025 03/01/2024 Depression Screening 05/17/2025 05/17/2024, 03/10/2024, 12/22/2023 Diabetic Foot Exam 05/29/2025 05/29/2024 GFR 07/12/2025 07/12/2024, 03/24, 04/11/2024, Additional history exists DTap/Tdap Vaccines (9 - Td o r Tdap) 01/24/2032 01/23/2022, 04/06/2018, 05/05/2012, Additional history exists Hepatitis B Vaccine Completed 03/23/2002, 2001, 2001 HPV (Gardasil) Vaccine Completed 8, 05/23/2014, 05/23/2014, Additional history exists MENINGOCOCCAL (MENACTRA/MENVEO) Completed 04/06/2018, 04/06/2018, 05/05/2012, Additional history exists Pneumococcal Vaccine: Pediat rics (0 to 5 Years) and At-Risk Patients (6 to 18 Years and 19+ Years) Completed 12/22/2023, 01/23/2022, 03/23/2002, Additional history exists Influenza Vaccine (FLU shot) Completed 11/2023, 06/26/2024, 06/29/2023, Additional history exists documented as of this encounter Medical Devices Not on filedocumented as of this encounter Visit Diagnoses Diagnosis Myofascial pain syndrome of lumbar spine- Primary documented in this encounter Care Teams Estate Administrator Relationship Specialty Start Date End Date Octavio Sue MD PCP - General Family Medicine 10/26/23 documented as of this encounter
--- OUTSIDE RECORDS SUMMARY | 2024-09-02 02:27 | External Medical Summary | Summary of Care ---
Author Name Unknown Organization [facility] Address [address] [place] [address] Phone [phone] Care Team Providers Care Medicare Interviewer Name Role Phone Octavio Sue MD Primary Care Provider [phone] Reason for Visit * Reason Comments Acute Encounter Details Date Type Department Care Team (Late st Contact Info) Description 08/09/2024 3:40 PM EST [facility] [address] [place] [phone] DecemberJamal MD [address] [place], [place] [phone] Nausea and vomiting, unspecified vomiting type* Allergies Active Allergy Reactions Criticality Noted Date [...] A1c goal of less than 7.0% ([facility]) Inject 4.5 mg under the skin once [...] mRNA, LNP-s, No Pre serve, 2-Dose Series (wedgies) 11/21/2020,10/31/2020 DTaP Dipth/Tet/Acell Pertussis (Infanrix), Peds 02/25/2006,06/22/2002,2001,07/25,2001 HIB PRP-T, 4 Dose, PF, IM (H iberix, ActHib) 07/31/2004,03/23/2002,2001,05/19 HPV Vaccine, 4-Valent 05/23/2014,02/28/2014 HPV Vaccine, 9-Valent 04/06/2018,05/23/2014,07/0 04/2014 Haemophilius B (HIB), unspecified 2003,03/23/2002,2001,05/19 Hepatitis [...] (Prevnar) 03/23/2002,2001,2001,05/19 Pneumococcal Conjugate Vacci ne, 20-valent ([id number]) 12/22/2023 Seasonal Influenza Vac., MDV , IM, [...] as of this encounter Progress Notes * Jamal Wyatt MD - 08/09/2024 3:47 PM EST Images from the original note were not included. Assessment and Plan 1. Nausea and vomiting, unspecified vomiting type (Primary) Still suspect some sort of gastroenteritis causing symptoms. Since Phenergan provided significant improvement in the hospital we will provide rectal Phenergan for him to use as needed for nausea. Continue bland diet. If any abdominal pain or other systemic signs of illness occur he should be seen in office for re-evaluation and consider imaging. Hold off on any further doses of Trulicity until symptoms resolve. - Promethazine HCl 25 MG Rectal Suppository (Phenergan); Administer 1 Suppository into the rectum every 6 hours as needed for Nausea. Dispense: 12 Each; Refill: 2 Wrap-Up Follow up as needed. History of Present Illness The patient is a 24 year old male with past medical history of type 2 diabetes, mild intermittent asthma, HTN, obesity, migraines, ADHD who presents via video visit for acute. Patient presents to follow up nausea and vomiting over the last week. He was seen in the ER on 08/01/2024 due to intractable vomiting. He was received 2 L of fluids and was given IV Phenergan. He responded very well to this and had 3-4 days of no symptoms. Of note symptoms did start within a coupleof days at him increasing his Trulicity dose from 3 mg to 4.5 mg. After this 3-4 day timeframe whenhe was feeling well and eating normally he had return of nausea and vomiting. He skipped his Trulicity dose this week due to concerns that this may be causing symptoms but has not seen an improvementin the nausea. Physical Exam There were no vitals filed for this visit. Physical Exam Physical Exam Constitutional: General: He is not in acute distress. Appearance: He is not toxic-appearing. Comments: Exam limited due to virtual visit. Pulmonary: Effort: Pulmonary effort is normal. Neurological: General: No focal deficit present. Mental Status: He is alert. Psychiatric: Mood and Affect: Mood normal. Behavior: Behavior normal. This note has been completed in part utilizing Open English Speech Voice Recognition Software. Due to technical limitations of the software, grammatical errors, random word insertions, prounoun errors, and incomplete sentences may occur. Any formal questions or concerns about the content, text, or information contained within the body of this dictation should be directly addressed to the provider for clarification. documented in this encounter Plan of Treatment Upcoming Encounters Date Type Department Care Team (Late st Contact Info) Description 08/21/2024 10:30 AM EST Office Visit Interventional Pain Center, [facility] [address] [phone] Meg Muñoz PA-C [address] [place] [address] 09/01/2024 2:30 PM EST Telemedicine Psychiatry Akash Leonard [address] [place] [phone] Lucien Mane DO [address] [place] [phone] 09/11/2024 9:30 AM EST Therapy Psychology [facility] [address] [address] Elvie Chan, AMADA [address] [place] [address] 10/02/2024 8:00 AM EST [facility] [address] [facility] [place] [phone] Octavio Sue MD [address] [place] [address] 10/11/2024 9:00 AM EST Office Visit Infectious Disease [facility] [address] [place] [address] Clotilde Reid MD [address] [place] [address] 11/14/2024 3:00 PM EDT Office Visit Sleep Disorders Ctr [facility] [address] [place] [address] Courtney Fischer DO [address] [place] [address] 12/19/2024 9:00 AM EDT Office Visit Pharmacy, [facility] [address] [place] [phone] [place] [address], [place] [phone] Health Maintenance Due Date Last Done Comments [...] as of this encounter Visit Diagnoses Diagnosis Nausea and vomiting, unspecified vomiting type- Primary documented in this encounter Care Teams Medicare Interviewer Relationship Specialty Start Date End Date Octavio Sue MD PCP - General Family Medicine 10/26/23 documented as of this encounter
--- OUTSIDE RECORDS SUMMARY | 2024-09-02 02:27 | External Medical Summary | Summary of Care ---
Author Name Unknown Organization [facility] Address [address] [place] [address] Phone [phone] Care Team Providers Care Supervisor Heading Name Role Phone Octavio Sue MD Primary Care Provider [phone] Reason for Visit * Reason Comments Back Pain * Precert (Within 30 days (routine)) - Authorized Specialty Diagnoses / Procedures Referred By Crissy her Referred To Contact Pain Medicine Diagnoses Myalgia, other site Procedures [place] INJECTION SINGLE/NURSE RESEARCH TRIGGER POINT 3 OR MORE MUSCLES Meg Muñoz PA-C [address] [place] [address] Phone: tel: fax: Interventional Pain Center, [facility] [address] [place] [address] Phone: tel: fax: Referral ID Status Reason Start Date Expiration Date V isits Requested Visits Authorized [id number] Authorized Precert 07/26/2024 09/24/[phone] Encounter Details Date Type Department Care Team (Late st Contact Info) Description 08/21/2024 10:30 AM EST Office Visit Interventional Pain Center, [facility] [email or web address] [place] [address] Meg Muñoz PA-C [address] [place] [address] Myofascial pain syndrome of lumbar spine* Allergies [...] hemoglobin A1c goal of less than 7.0% ([facility]) Use as directed every 10 days. 9 Each 4 08/17/2024 8:16 AM EST 05/31/20 Active GNP Easy Touch Glucose Meter DeviceIndications: Type 2 diabetes mellitus with hemoglobin A1c goal of less than 7.0% ([facility]) Use to check blood sugars daily E 11.9 1 Each 4 05/31/20 Active GNP Easy Touch Glucose Test In Vitro Strip (Glucose Blood)Indications: Type 2 diabetes mellitus with hemoglobin A1c goal of less than 7.0% ([facility]) Use to check blood sugars daily E 11.9 100 Strip 4 05/31/20 Active GNP Sterile Lancets 28GIndications:Typ e 2 diabetes mellitus with hemoglobin A1c goal of less than 7.0% ([facility]) Use to check blood sugars daily. E [...] (Prevnar) 03/23/2002,2001,2001,05/19 Pneumococcal Conjugate Vacci ne, 20-valent ([id number]) 12/22/2023 Seasonal Influenza Vac., MDV , IM, [...] No 10/25/2023 Does the household have a [place] [place] source of income? (Household - for ages [...] AM EST Procedure:Trigger Point Injection(s)-Local Anesthetic CPT #31034 Indication(s): Myofascial Pain of R lumbar region [...] [id number] 09/11/2024 9:30 AM EST Therapy Psychology [facility] [address] [phone] Elvie Chan LCSW [address] [address] 10/02/2024 8:00 AM EST [facility] [address] [facility] [place] [phone] Octavio Sue MD [address] [facility] [place] [address] 10/11/2024 9:00 AM EST [facility] [address] [place] [address] Clotilde Reid MD [address] [place] [address] 11/14/2024 3:00 PM EDT [facility] [place] [phone] Courtney Fischer DO [facility] [place] [address] 12/19/2024 9:00 AM EDT [facility] [place] [facility] [address] [facility] [place] [phone] [facility] [address] [place] [address] Health Maintenance Due Date Last Done Comments [...] Primary documented in this encounter Care Teams Supervisor Heading Relationship Specialty Start Date End Date Octavio Sue MD PCP - General Family Medicine 10/26/23 documented as of this encounter
--- OUTSIDE RECORDS SUMMARY | 2024-09-02 02:28 | External Medical Summary | Summary of Care ---
Author Name Unknown Organization [facility] Address [address] [place] [address] Phone [phone] Care Team Providers Care Room Designer Name Role Phone Octavio Sue MD Primary Care Provider Reason for Visit * Reason Comments Emergency Department Follow-Up Patient i s here today for an ED follow up. Patient states he was in the ED for nausea and vomiting. Patient states he is feeling back to normal, no vomiting or nausea since his ED visit. Encounter Details Date Type Department Care Team (Late st Contact Info) Description 08/04/2024 10:40 AM EST Office Visit [facility] [address] [place] [phone] Octavio Sue MD [address] [place] [address] Nausea and vomiting, unspecified vomiting type*; Type 2 diabetes mellitus with hemoglobin A1c goal of less than 7.0% ([facility]) Allergies Active Allergy Reactions Criticality Noted Date Comments Bee Venom 09/01/2017 Food (See Comments) 09/01/2017 Raisins Latex 12/30/2023 Red hands,itchy hives on hands. Oxycodone Anaphylaxis High 10/27/2023 Penicillins Hives,Itching 10/27/2023 Sulfa Antibiotics Hives High 01/04/2024 Sumatriptan Other (Please comment) 10/27/2023 Dizziness and light headedness documented as of this encounter (statuses as of 08/04/2024) Medications Metoclopramide HCl 10 MG Oral Tablet [...] mouth in the morning. 30 Tablet 3 4 3:05 PM EDT 04/19/20 24 Active Divalproex Sodium 250 MG Oral Tablet Delayed Release (Depakote DR) Take 1 tablet by mouth daily 90 Tablet 2 4 12:37 PM EDT 05/11/20 24 Active Emgality [...] breath and or whizzing. 18 g 5 4 10:34 AM EDT 05/30/20 24 Active Dexcom G7 SensorIndications: Type 2 diabetes mellitus with hemoglobin A1c goal of less than 7.0% ([facility]) Use as directed every 10 days. 9 Each 4 4 11:37 AM EDT 05/31/20 24 Active GNP Easy Touch Glucose Meter DeviceIndications: Type 2 diabetes mellitus with hemoglobin A1c goal of less than 7.0% ([facility]) Use to check blood sugars daily E 11.9 1 Each 4 05/31/20 24 Active GNP Easy Touch Glucose Test In Vitro Strip (Glucose Blood)Indications: Type 2 diabetes mellitus with hemoglobin A1c goal of less than 7.0% ([facility]) Use to check blood sugars daily E 11.9 100 Strip 4 05/31/20 24 Active GNP Sterile Lancets 28GIndications:Typ e 2 diabetes mellitus with hemoglobin A1c goal of less than 7.0% ([facility]) Use to check blood sugars daily. E 11.0 100 Each 4 05/31/20 24 Active DULoxetine HCl 30 MG Oral Capsule Delayed Release Particles (Cymbalta)Indicati ons:Lumbar radicular pain,DDD (degenerative disc disease), lumbar,Neuropathic pain Take 1 Capsule by mouth in the morning and 1 Capsule before bedtime. 60 Capsule 3 4 2:00 PM EDT 06/19/20 24 Active Nurtec 75 MG Oral Tablet Disintegrating (Rimegepant Sulfate) Take one tablet by mouth daily as needed for migraine. Max one tablet a day 24 Tablet 3 4 1:10 PM EST 07/08/20 24 Active traZODone HCl 100 MG Oral Tablet (Desyrel) Take 1 Tablet by mouth at bedtime as needed for Sleep. 30 Tablet 07/12/20 24 Active Trulicity 4.5 MG/0.5ML Subcutaneous Solution Auto-injector (Dulaglutide)Indic ations:Type 2 diabetes mellitus with hemoglobin A1c goal of less than 7.0% ([facility]) Inject 4.5 mg under the skin once a week. Dose increase 6 mL 4 1:32 PM EST 07/18/20 24 Active Rosuvastatin Calcium 20 MG Oral Tablet (Crestor)Indicatio ns:Type 2 diabetes mellitus with hemoglobin A1c goal of less than 7.0% ([facility]) Take 1 Tablet by mouth every day 90 Tablet 4 4 9:58 AM EST 07/19/20 Active Additional Information [...] 20 MG Oral Tablet (Bentyl) 08/02/20 Active Rimegepant Sulfate 75 MG Oral Tablet Disintegrating Take by mouth. Discontin ued(Medic ation List Clean Up) Diclofenac Sodium 75 MG Oral Tablet Delayed Release (Voltaren)Indicati ons:Lumbar radicular pain,Myofascial muscle pain Take 1 Tablet by mouth in the morning and 1 Tablet before bedtime. 60 Tablet 01/31/20 24 Discontin ued(Medic ation/Dos e Changed) Emgality 120 MG/ML Subcutaneous Solution Auto-injector (Galcanezumab-gnlm ) inject 120mg under the skin every month 3 mL 3 4 12:00 PM EST 05/16/20 24 024 Discontin ued(Medic ation List Clean Up) HYDROcodone-Acetam inophen 5-325 MG Oral Tablet Take 1 Tablet by mouth every 6 hours as needed for Pain, Severe. 05/11/20 24 024 Discontin ued(Medic ation List Clean Up) Emtricitabine-Teno fovir AF 200-25 MG Oral Tablet (Descovy) Take 1 Tablet by mouth in the morning. 90 Tablet 4 3:38 PM EST 07/13/20 24 024 Discontin ued(Medic ation List Clean Up) documented as of this encounter (statuses as of 08/04/2024) Active Problems Problem Noted Date Diagnosed Date [...] as of this encounter (statuses as of 08/04/2024) Resolved Problems Problem Noted Date Diagnosed Date Resolved Date Wheezing 09/06/2013 04/10/2019 Hypercholesterolemia 03/21/2013 019 Obesity, pediatric 2013 documented as of this encounter (statuses as of 08/04/2024) Immunizations Name Administration Dates Next Due COVID-19 [...] (Prevnar) 03/23/2002,2001,2001,05/19 Pneumococcal Conjugate Vacci ne, 20-valent ([id number]) 12/22/2023 Seasonal Influenza Vac., MDV , IM, [...] PM EST documented as of this encounter Last Filed Vital Signs Vital Sign Reading Time Taken Comments Blood Pressure 126/86 08/04/2024 10:55 AM EST Pulse 83 08/04/2024 10:55 AM EST Temperature 35.4 C (95.7 F) 08/04/2024 1 0:55 AM EST Respiratory Rate 16 08/04/2024 10:5 5 AM EST Oxygen Saturation 98% 08/04/2024 10: 55 AM EST Inhaled Oxygen Concentration - - Weight 134.8 kg (297 lb 3.2 oz) 024 10:55 AM EST Height 193 cm (6' 4") 08/04/2024 10:55 AM EST Body Mass Index 36.18 08/04/2024 10:55 AM EST documented in this encounter Progress Notes * Octavio Sue MD - 08/04/2024 11:35 AM EST Subjective: Basil Bailey is a 24 year old male. Chief Complaint Patient presents with Emergency Department Follow-Up Patient is here today for an ED follow up. Patient states he was in the ED for nausea and vomiting. Patient states he is feeling back to normal, no vomiting or nausea since his ED visit. HPI: 24-year-old that was seen [place] ER on 08/01 24 because of intractable vomiting. In the ER he received 2 L of IV fluids and was given IV Phenergan. He tells me that he does not respond to Zofran for nausea. It was felt that his nausea and vomiting was probably related to the increase in Trulicity from 3 mg to 4.5 mg per week. He took his 1st dose of the higher Trulicity dosing a week ago and shortly thereafter his nausea and vomiting started. He has been okay since in the Emergency Room. Discharged with a prescription for Bentyl 10 mg which he has not picked up yet Patient Active Problem List Diagnosis Family history of diabetes mellitus Migraines Attention deficit hyperactivity disorder (ADHD) Class 3 severe obesity due to excess calories with serious comorbidity and body mass index (BMI) of40.0 to 44.9 in adult ([facility]) Type 2 diabetes mellitus with hemoglobin A1c goal of less than 7.0% ([facility]) HTN, goal below 130/80 Mild intermittent asthma without complication Current Outpatient Medications Medication Sig Dispense Refill Metoclopramide HCl 10 MG Oral Tablet (Reglan) Take 1 Tablet by mouth every 6 hours as needed for Nausea or Other (vomitting). Pantoprazole Sodium 40 MG Oral Tablet Delayed Release (Protonix) Take 1 Tablet by mouth in the morning and 1 Tablet in the evening. Rizatriptan Benzoate 10 MG Oral Tablet (Maxalt) Take 1 Tablet by mouth as needed for Migraine. metFORMIN HCl 1000 MG Oral Tablet (Glucophage) Take 1 Tablet by mouth 2 times a day with morning and evening meals. 180 Tablet 3 Triamcinolone Acetonide 0.1 % External Cream (Aristocort) Apply 4-5 grams to affected area 2 times a day up to 2 weeks for itching 80 g 1 Lisinopril 40 MG Oral Tablet Take 1 Tablet by mouth in the morning. hydroCHLOROthiazide 25 MG Oral Tablet (Hydrodiuril) Take 1 Tablet by mouth in the morning. 90 Tablet 3 Descovy 200-25 MG Oral Tablet (Emtricitabine-Tenofovir AF 200-25 mg per tab) Take 1 Tablet by mouthin the morning. 30 Tablet 3 Divalproex Sodium 250 MG Oral Tablet Delayed Release (Depakote DR) Take 1 tablet by mouth daily 90 Tablet 2 Emgality 120 MG/ML Subcutaneous Solution Auto-injector (Galcanezumab-gnlm) Inject 120 mg under the skin once a month 1 mL 11 OLANZapine 5 MG Oral Tablet (zyPREXA) Take 1 Tablet by mouth at bedtime. Albuterol Sulfate HFA 108 (90 Base) MCG/ACT Inhalation Aerosol Solution Inhale 1 Puff by mouth in the morning and 1 Puff at noon and 1 Puff in the evening and 1 Puff before bedtime. For shortness of breath and or whizzing. 18 g 5 Dexcom G7 Sensor Use as directed every 10 days. 9 Each 4 GNP Easy Touch Glucose Meter Device Use to check blood sugars daily E 11.9 1 Each 4 GNP Easy Touch Glucose Test In Vitro Strip (Glucose Blood) Use to check blood sugars daily E 11.9 100 Strip 4 GNP Sterile Lancets 28G Use to check blood sugars daily. E 11.0 100 Each 4 DULoxetine HCl 30 MG Oral Capsule Delayed Release Particles (Cymbalta) Take 1 Capsule by mouth in the morning and 1 Capsule before bedtime. 60 Capsule 3 Nurtec 75 MG Oral Tablet Disintegrating (Rimegepant Sulfate) Take one tablet by mouth daily as needed for migraine. Max one tablet a day 24 Tablet 3 traZODone HCl 100 MG Oral Tablet (Desyrel) Take 1 Tablet by mouth at bedtime as needed for Sleep. 30 Tablet 0 Trulicity 4.5 MG/0.5ML Subcutaneous Solution Auto-injector (Dulaglutide) Inject 4.5 mg under the skin once a week. Dose increase 6 mL 0 Albuterol Sulfate HFA 108 (90 Base) MCG/ACT Inhalation Aerosol Solution Inhale by mouth. 20.1 g 0 Sucralfate 1 GM Oral Tablet (Carafate) take 1 tablet by mouth every 6 hours 360 Tablet 3 Dicyclomine HCl 20 MG Oral Tablet (Bentyl) Rosuvastatin Calcium 20 MG Oral Tablet (Crestor) Take 1 Tablet by mouth every day (Patient not taking: Reported on 07/31/2024) 90 Tablet 4 No current facility-administered medications for this visit. Review of patient's allergies indicates: Allergen Reactions Oxycodone Anaphylaxis Sulfa Antibiotics Hives Bee Venom Food (See Comments) Raisins Latex Red hands,itchy hives on hands. Penicillins Hives and Itching Sumatriptan Other (Please comment) Dizziness and light headedness Objective: BP 126/86 (BP Site: Right Arm, BP Position: Sitting, BP Cuff Size: Regular) | Pulse 83 | Temp 95.7 F (35.4 C) (Tympanic) | Resp 16 | Ht 6' 4" (1.93 m) | Wt 297 lb 3.2 oz (134.8 kg) | SpO2 98% | BMI 36.18 kg/m | BSA 2.69 m Physical Exam: CONST: alert, pleasant, no acute distress HEAD: normocephalic, atraumatic Eyes - PERRLA, EOM'I OROPHARYNX: clear, no swelling or erythema, moist CV: regular rate and rhythm, no murmur CHEST: clear to auscultation bilaterally, no rales or wheezing ABD: soft, non tender, non distended, no masses or hepatosplenomegaly EXT: no edema, no joint swelling or deformities, ASSESSMENT/PLAN: Type 2 diabetes mellitus with hemoglobin A1c goal of less than 7.0% ([facility]) I suggested he try taking the Trulicity 4.5 mg another time. If he gets the nausea and vomiting hecan try to use the Bentyl 10 mg up to 3 times a day. If he gets nausea with the higher dose of Trulicity then will back down to 3 mg per week. Octavio Sue MD documented in this encounter Nursing Notes * Ping Dhaliwal LPN - 08/04/2024 11:00 AM EST The patient has been properly identified by confirmation of name and date of . Chief Complaint Patient presents with Emergency Department Follow-Up Patient is here today for an ED follow up. Patient states he was in the ED for nausea and vomiting. Patient states he is feeling back to normal, no vomiting or nausea since his ED visit. documented in this encounter Plan of Treatment Upcoming Encounters Date Type Department Care Team (Late st Contact Info) Description 08/07/2024 9:30 AM EST Therapy Psychology [facility] [address] [place] [phone] Elvie Chan LCSW [address] [place] [address] 08/21/2024 10:30 AM EST Office Visit [facility], [facility] [address] [place] [address] Meg Muñoz PA-C [address] [place] [address] 09/01/2024 2:30 PM EST Telemedicine Psychiatry Virginie Leonard [address] [place] [phone] Lucien Mane DO [address] [place] [phone] 10/02/2024 8:00 AM EST [facility] [address] [place] [phone] Octavio Sue MD [address] [place] [address] 10/11/2024 9:00 AM EST [facility] Visit [facility] [address] [facility] [place] [address] Clotilde Reid MD [address] [place], [place] [address] 11/14/2024 3:00 PM EDT [facility] [address] [place] [phone] Courtney Fischer DO [address] [place] [address] 12/19/2024 9:00 AM EDT [facility] [address] [place] [phone] [facility] [address] [place] [address] Health Maintenance Due Date Last Done Comments [...] Nausea and vomiting, unspecified vomiting type- Primary Type 2 diabetes mellitus with hemoglobin A1c goal of less than 7.0% (HCC) documented in this encounter Care Teams Room Designer Relationship Specialty Start Date End Date Octavio Sue MD [address] [place] [address] PCP - General Family Medicine 10/26/23 documented as of this encounter
--- OUTSIDE RECORDS SUMMARY | 2024-09-02 02:28 | External Medical Summary | Summary of Care ---
Author Name Unknown Organization [facility] Address [address] [place] [address] Phone [phone] Care Team Providers Care Br[employer] Tube Bender Name Role Phone Octavio Sue MD Primary Care Provider [phone] Reason for Visit * Reason Comments Psychotherapy Encounter Details Date Type Department Care Team (Late st Contact Info) Description 08/07/2024 9:30 AM EST Therapy Psychology [facility] [address] [place] [phone] Elvie Chan, [facility] [address] [place] [phone] Generalized anxiety disorder*; Major depressive disorder, recurrent episode, moderate (HCC) Allergies Active Allergy Reactions Criticality Noted Date Comments Bee Venom 09/01/2017 Food (See Comments) 09/01/2017 Raisins Latex 12/30/2023 Red hands,itchy hives on hands. Oxycodone Anaphylaxis High 10/27/2023 Penicillins Hives,Itching 10/27/2023 Sulfa Antibiotics Hives High 01/04/2024 Sumatriptan Other (Please comment) 10/27/2023 Dizziness and light headedness documented as of this encounter (statuses as of 08/07/2024) Medications Metoclopramide HCl 10 MG Oral Tablet [...] as of this encounter (statuses as of 08/07/2024) Active Problems Problem Noted Date Diagnosed Date [...] as of this encounter (statuses as of 08/07/2024) Resolved Problems Problem Noted Date Diagnosed Date Resolved Date Wheezing 09/06/2013 04/10/2019 Hypercholesterolemia 03/21/2013 019 Obesity, pediatric 2013 4 documented as of this encounter (statuses as of 08/07/2024) Immunizations Name Administration Dates Next Due COVID-19 [...] (Prevnar) 03/23/2002,2001,2001,05/19 Pneumococcal Conjugate Vacci ne, 20-valent ([id number]) 12/22/2023 Seasonal Influenza Vac., MDV , IM, [...] as of this encounter Progress Notes * Elvie Chan, SURGICAL TECHNOLOGY INSTRUCTOR - 08/07/2024 9:28 AM EST PRIMARY CARE BEHAVIORAL HEALTH FOLLOW-UP 08/07/2024 Length of visit: 50 minutes (9:35 am - 10:25 am) Type of Visit: individual Treatment session number: 5 AGENDA & ACTION PLAN: -Check in-Basil shared update of his situation. -Today therapist utilized open ended, closed ended and clarifying questions and empathetic and active listening to promote expression of thoughts and feelings as Basil shared more about his situationand provided update regarding mood and management of anxiety and depression and stress. Basil sharing changes he made in his job situation after our last session to reduce stress and have a better work life balance. He shared his follow up after our last session as he was experiencing manic symptoms. 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 We took time to process causes of stress with therapist using CBT approach connecting thoughts to emotions to behaviors as well as a values approach as Basil responding with .desire to follow his values of care of brother, family and self. -Therapist and Basil also worked to update treatment plan and we discussed what was helpful, identified coping skills, reflected on progress and work to be done moving forward in therapy. Optional: Interventions addressed in treatment thus far: Treatment/Intervention Visit 08/07/2024 1 2 3 4 5 6 Behavioral activation Behavior modification for poor health behaviors (e.g., smoking cessation) Breathing re-training mindfulness training Cognitive restructuring/diffusion x Exercise/physical activity Problem-solving Psychoeducation Exposure and/or response prevention Supportive therapy x Sleep hygiene Stimulus control Time in bed restriction Conduct WHO (BHCM,JUDE,MTM) MENTAL STATUS EXAMINATION: No changes to mental status since last visit. No change in suicide or homicide risk status since last visit. Level of suicide completion risk:Low Risk (wish to or ideation without method, intent, plan, orbehavior; modifiable risk factors and strong protective factors; or no reported history of ideationor behavior): Pt has agreed to return for further psychotherapy. Generalized Anxiety disorder, Major Depressives Disorder, recurrent episode, moderate. RETURN 2 WEEKS for individual cognitive behavioral therapy. Elvie Chan LCSW Primary Care Behavioral Health Psychology [facility] [address] [place] [address] documented in this encounter Plan of Treatment Upcoming Encounters Date Type Department Care Team (Late st Contact Info) Description 08/21/2024 10:30 AM EST Office Visit [facility], [facility] [address] [place] [address] Meg Muñoz PA-C [address] [place] [address] 09/01/2024 2:30 PM EST Telemedicine Psychiatry Akash Leonard [address] [place] [phone] Lucien Mane DO [address] [place] [phone] 09/11/2024 9:00 AM EST Therapy Psychology [facility] [address] [place] [address] Elvie Chan LCSW [address] [place] [address] 10/02/2024 8:00 AM EST Office Visit [facility] [address] [facility] [place] [phone] Octavio Sue MD [address] [facility] [address] 10/11/2024 9:00 AM EST Office Visit [facility] [address] [place] [address] Clotilde Reid MD [address] [place] [address] 11/14/2024 3:00 PM EDT Office Visit [facility] [address] [facility] [place] [phone] Courtney Fischer DO [facility] [place] [address] 12/19/2024 9:00 AM EDT [facility] [place] [phone] [facility] [address] [place] [address] [place] [address] Health Maintenance Due Date Last Done Comments COVID-19 Vaccine (2023- 5 season) 2024 06/03/2022, 11/21/2020, 10/31/2020, Additional [...] as of this encounter Visit Diagnoses Diagnosis Generalized anxiety disorder- Primary Major depressive disorder, recurrent episode, moderate (HCC) Major depressive disorder, recurrent episode, moderate documented in this encounter Care Teams [employer] Tube Bender Relationship Specialty Start Date End Date Octavio Sue MD [address] [place] [address] PCP - General Family Medicine 10/26/23 documented as of this encounter
--- OUTSIDE RECORDS SUMMARY | 2024-09-02 02:28 | External Medical Summary | Summary of Care ---
Author Name Unknown Organization [facility] Address [address] [place] [address] Phone [phone] Care Team Providers Care Community Engagement Representative Name Role Phone Octavio Sue MD Primary Care Provider Reason for Visit * Reason Onset Date Comments Advice 08/01/2024 FYI 08/01/2024 Encounter Details Date Type Department Care Team (Late st Contact Info) Description 08/01/2024 Telephone [facility], [facility] [address] [place] [address] Octavio Sue MD [address] [place] [address] Advice; Allergies Active Allergy Reactions Criticality Noted Date Comments Bee Venom 09/01/2017 Food (See Comments) 09/01/2017 Raisins Latex 12/30/2023 Red hands,itchy hives on hands. Oxycodone Anaphylaxis High 10/27/2023 Penicillins Hives,Itching 10/27/2023 Sulfa Antibiotics Hives High 01/04/2024 Sumatriptan Other (Please comment) 10/27/2023 Dizziness and light headedness documented as of this encounter (statuses as of 08/02/2024) Medications Metoclopramide HCl 10 MG Oral Tablet [...] by mouth as needed for Migraine. Active Rimegepant Sulfate 75 MG Oral Tablet Disintegrating Take by mouth. Active metFORMIN HCl 1000 MG Oral Tablet (Glucophage) Take 1 Tablet by mouth 2 times a day with morning and evening meals. 180 Tablet 3 12/20/19 24 Active Diclofenac Sodium 75 MG Oral Tablet Delayed Release (Voltaren)Indicati ons:Lumbar radicular pain,Myofascial muscle pain Take 1 Tablet by mouth in the morning and 1 Tablet before bedtime. 60 Tablet 01/31/20 24 Active Triamcinolone Acetonide 0.1 % External [...] month 1 mL 11 05/11/20 24 Active Emgality 120 MG/ML Subcutaneous Solution Auto-injector (Galcanezumab-gnlm ) inject 120mg under the skin every month 3 mL 3 07/05/2024 12:00 PM EST 05/16/20 Active HYDROcodone-Acetam inophen 5-325 MG Oral Tablet Take 1 Tablet by mouth every 6 hours as needed for Pain, Severe. 05/11/20 Active OLANZapine 5 MG Oral Tablet [...] Each 4 06/01/2024 11:37 AM EDT 05/31/20 Active GNP Easy Touch Glucose Meter [...] hemoglobin A1c goal of less than 7.0% ([facility]) Use to check blood sugars daily. E [...] 24 Tablet 3 07/13/2024 1:10 PM EST 11/16/20 24 Active traZODone HCl 100 MG Oral Tablet (Desyrel) Take 1 Tablet by mouth at bedtime as needed for Sleep. 30 Tablet 07/12/20 Active Emtricitabine-Teno fovir AF 200-25 MG Oral Tablet (Descovy) Take 1 Tablet by mouth in the morning. 90 Tablet 07/13/2024 3:38 PM EST 07/13/20 24 025 Active Trulicity 4.5 MG/0.5ML Subcutaneous Solution Auto-injector [...] per MTM as of 07/31/24, Reported on 07/31/2024 Albuterol Sulfate HFA 108 (90 Base) MCG/ACT Inhalation Aerosol Solution Inhale by mouth. 20.1 g 07/24/20 Active Sucralfate 1 GM Oral Tablet (Carafate) take 1 tablet by mouth every 6 hours 360 Tablet 3 08/01/20 Active documented as of this encounter (statuses as of 08/02/2024) Active Problems Problem Noted Date Diagnosed Date [...] as of this encounter (statuses as of 08/02/2024) Resolved Problems Problem Noted Date Diagnosed Date Resolved Date Wheezing 09/06/2013 04/10/2019 Hypercholesterolemia 03/21/2013 019 Obesity, pediatric 2013 4 documented as of this encounter (statuses as of 08/02/2024) Immunizations Name Administration Dates Next Due COVID-19 mRNA, LNP-s, No Pre serve, 2-Dose Series (Pfizer) 11/21/2020,10/31/2020 DTaP Dipth/Tet/Acell Pertussis (Infanrix), Peds 02/25/2006,06/22/2002,2001,07/25,2001 HIB PRP-T, 4 Dose, PF, IM (H iberix, ActHib) 07/31/2004,03/23/2002,2001,05/19 HPV Vaccine, 4-Valent 05/23/2014,02/28/2014 HPV Vaccine, 9-Valent 04/06/2018,05/23/2014,04/2014 Haemophilius B (HIB), unspecified 2003,03/23/2002,2001,05/19 Hepatitis A [...] (Prevnar) 03/23/2002,2001,2001,05/19 Pneumococcal Conjugate Vacci ne, 20-valent ([id number]) 12/22/2023 Seasonal Influenza Vac., MDV , IM, [...] No 10/25/2023 Does the household have a rustlar source of income? (Household - for ages [...] Telephone Encounter - Roxy Erickson OSA - 08/02/2024 5:09 PM EST Patient states he went to the ER and is already scheduled for ER appt. Patient wants to be seen in the [place] office instead of [place]. Rescheduled. 08/02/2024 * Telephone Encounter - Suzy Garcia OSA - 08/01/2024 4:21 PM EST No Appointments Available Patient declined appointments?: No What Visit Type is needed? Acute If Acute Visit Type is needed, were surrounding clinics offered to patient (Yes/No)? Yes Was patient offered appointments with other available providers (Yes/No)? Yes See Call Details? (Yes or No): No Pt stated that he has been vomiting for 3 days and has been his nausea meds and it is not helping. documented in this encounter Plan of Treatment Upcoming Encounters Date Type Department Care Team (Late st Contact Info) Description 08/04/2024 10:40 AM EST Office Visit [facility] Luanne Neno [address] [place] [phone] Octavio Sue MD [address] [place] [address] 08/07/2024 9:30 AM EST Therapy Psychology [facility] [address] [place] [address] Elvie Chan LCSW [address] [place] [address] 08/09/2024 11:00 AM EST Office Visit [facility] [address] [facility] [place] [address] Yoni Peacock, DO [address] [facility] [place] [address] 08/21/2024 10:30 AM EST Office Visit [facility], [facility] [address] [place] [address] Meg Muñoz PA-C [address] [place] [address] 09/01/2024 2:30 PM EST Telemedicine Psychiatry Akash Leonard [address] [place] [phone] Lucien Mane, DO [address] [place] [phone] 10/02/2024 8:00 AM EST Office Visit Family Practice, [place] [address] [facility] [place] [address] Octavio Sue MD [address] [place] [address] 10/11/2024 9:00 AM EST Office Visit [facility] [address] [place] [address] Clotilde Reid MD [address] [place] [address] 11/14/2024 3:00 PM EDT Office Visit [facility] Disorders Ctr [facility] [address] [facility] [phone] Courtney Fischer [facility] [address] [facility] [address] 12/19/2024 9:00 AM EDT Office Visit Pharmacy, [place] Luanne Rod[address]guez [address] [facility] [place] [address] Doroteo [facility] [address] [place] [address] Health Maintenance Due Date Last Done Comments COVID-19 Vaccine (2023- 5 season) 2024 06/03/2022, 11/21/2020, 10/31/2020, Additional history exists Albumin/Creatinine Ratio 10/26/2024 10/27/2023 HbA1c 11/15/2024 05/18/2024, 0301/2024, 01/02/2016, Additional history exists Diabetic Eye Exam [...] filedocumented as of this encounter Care Teams Community Engagement Representative Relationship Specialty Start Date End Date Octavio Sue MD [address] [place] [address] PCP - General Family Medicine 10/26/23 documented as of this encounter
--- OUTSIDE RECORDS SUMMARY | 2024-09-02 02:28 | External Medical Summary | Summary of Care ---
Author Name Unknown Organization [facility] Address [address] [place] [address] Phone [phone] Care Team Providers Care Administrative Job Titles Name Role Phone Octavio Sue MD Primary Care Provider Reason for Visit * Reason Onset Date Comments Advice 08/01/2024 FYI 08/01/2024 Encounter Details Date Type Department Care Team (Late st Contact Info) Description 08/01/[address] [facility], [facility] [address] [place] [address] Octavio Sue MD [address] [place] [address] Advice; Allergies Active Allergy Reactions Criticality Noted [...] hemoglobin A1c goal of less than 7.0% ([facility]) Use to check blood sugars daily. E [...] (Prevnar) 03/23/2002,2001,2001,05/19 Pneumococcal Conjugate Vacci ne, 20-valent ([id number]) 12/22/2023 Seasonal Influenza Vac., MDV , IM, [...] No 10/25/2023 Does the household have a [facility] source of income? (Household - for ages [...] Patient wants to be seen in the [place] office instead of [place]. Rescheduled. 08/02/2024 * [...] Description 08/04/2024 10:40 AM EST Office Visit [facility] Luanne Neno [address] [place] [phone] Octavio Sue MD [address] [place] [address] 08/07/2024 9:30 AM EST Therapy Psychology [facility] [address] [place] [phone] Elvie Chan LCSW [address] [place] [address] 08/09/2024 11:00 AM EST Office Visit [facility] [address] [facility] [place] [address] Yoni Peacock, DO [address] [facility] [place] [address] 08/21/2024 10:30 AM EST Office Visit Interventional Pain Center, [facility] [address] [place] [address] Meg Muñoz PA-C [address] [place] [address] 09/01/2024 2:30 PM EST Telemedicine Psychiatry Akash Leonard [address] [place] [phone] Lucien Mane, DO [address] [place] [phone] 10/02/2024 8:00 AM EST Office Visit Family Practice, [place] [address] [facility] [place] [address] Octavio Sue MD [address] [place] [address] 10/11/2024 9:00 AM EST Office [facility] [address] [place] [address] Clotilde Reid MD [address] [place] [address] 11/14/2024 3:00 PM EDT Office Visit Sleep Disorders Ctr [facility] [address] [facility] [phone] Courtney Fischer DO [address] [facility] [place] [address] 12/19/2024 9:00 AM EDT Office Visit Pharmacy, [place] Luanne Rodríguez [address] [facility] [place] [address] Doroteo [facility] [address] [place] [address] Health Maintenance Due Date Last Done Comments [...] filedocumented as of this encounter Care Teams Administrative Job Titles Relationship Specialty Start Date End Date Octavio Sue MD [address] [place] [address] PCP - General Family Medicine 10/26/23 documented as of this encounter
[2024-09-02 02:44] VITALS: O2SAT 98
[2024-09-02 06:33] VITALS: RESP 16
[2024-09-02] MEDS: DIVALPROEX DELAY RELEASE 250 MG TABEC PO SCH (10:00)
[2024-09-02] MEDS: DULoxetine HCL 30 MG CAP PO SCH (10:01)
[2024-09-02] MEDS: lisinopril 40 MG TAB PO SCH (10:01)
[2024-09-02] MEDS: hydroCHLOROthiazide 25 MG TAB PO SCH (10:01)
[2024-09-02] MEDS: metFORMIN HCL 500 MG TAB PO SCH (10:02)
[2024-09-02] MEDS: PANTOprazole 40 MG TAB PO SCH (10:02)
[2024-09-02] MEDS: SUCRALFATE 1 GM TAB PO SCH (10:02)
[2024-09-02] MEDS: ROSUVASTATIN CALCIUM 20 MG TAB PO SCH ×2 (10:11→21:09)
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
[2024-09-02] MEDS ORDERED: traZODone HCL 100 MG TAB PO PRN (22:00)
[2024-09-02] MEDS: DULAGLUTIDE 1.5 MG/0.5 ML PEN SQ SCH (22:37)
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
--- NOTE | 2024-09-03 20:46 | Electrocardiogram Report ---
Test Reason : Blood Pressure : */* mmHG Vent. Rate : 108 BPM Atrial Rate : 108 BPM P-R Int : 152 ms QRS Dur : 94 ms QT Int : 328 ms P-R-T Axes : 56 29 22 degrees QTcB Int : 439 ms Sinus tachycardia Otherwise normal ECG When compared with ECG of 25-May-2024 22:35, Criteria for Inferior infarct are no longer Present Confirmed by Wilberto Morrison ([id number]) on 09/03/2024 8:46:27 PM Referred By: REFERRED SELF Confirmed By: Wilberto Morrison
--- NOTE | 2024-09-03 20:47 | Electrocardiogram Report ---
Test Reason : Blood Pressure : */* mmHG Vent. Rate : 86 BPM Atrial Rate : 86 BPM P-R Int : 168 ms QRS Dur : 100 ms QT Int : 368 ms P-R-T Axes : 39 41 27 degrees QTcB Int : 440 ms Normal sinus rhythm with sinus arrhythmia Normal ECG When compared with ECG of 01-Sep-2024 16:43, No significant change was found Confirmed by Wilberto Morrison ([id number]) on 09/03/2024 8:47:09 PM Referred By: REFERRED SELF Confirmed By: Wilberto Morrison
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
[2024-09-04] MEDS: IBUPROFEN 200 MG TAB PO PRN (14:19)
[2024-09-04 15:17] LABS: Codeine Urine NEGATIVE ng/mL (<50); Hydrocodone Urine 276 ng/mL (<50); Hydromor Urine NEGATIVE ng/mL (<50); Marijuana Quant, GCMS Urine 64 ng/mL (<5); Morphine Urine NEGATIVE ng/mL (<50); Norhydrocodone Conf Ur 140 ng/mL (<50); Noroxycodone Urine NEGATIVE ng/mL (<50); Oxycodone Urine NEGATIVE ng/mL (<50); Oxymorph Urine NEGATIVE ng/mL (<50)
[2024-09-05 06:28] VITALS: TEMP 98.2
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
[2024-09-05 09:56] VITALS: BP 144/90; PULSE 80
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
== END 2024-09-05 10:37 | disposition home or self-care (01) | DRG 882 ==
LOC: ED 16:36 → 3S 23:46